=== PATIENT | male | born 1960 | race Caucasian/White ===

== ENCOUNTER 2019-09-16 12:06 | Emergency (ER) | payer OTHER ==
[~2019-09-16] VITALS: Ht 182.9 cm; Wt 111.4 kg
[2019-09-16 12:14] VITALS: BP 187/97
--- NOTE | 2019-09-16 13:14 | NUR ---
flu and posey swab done.
== END 2019-09-16 13:35 | disposition home or self-care (01) ==
LOC: ER 12:06
DX: J06.9 Acute upper respiratory infection, unspecified (principal); I10 Essential (primary) hypertension; Z72.89 Other problems related to lifestyle
CPT/HCPCS: 36415; 87502; 87503; 99283

== ENCOUNTER 2019-09-18 09:31 | Emergency (ER) | payer OTHER ==
--- NOTE | 2019-09-18 09:43 | NUR ---
PT WAS REGISTERED BY ER ADMITTING. PT ONLY WANTED HIS TEMPERATURE CHECKED FOR THE TABARES VIRUS. PT'S TEMP WAS 98.5 TEMPORALLY, PT DID NOT WANT TO BE SEEN AND LEFT WITHOUT A TRIAGE. 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
== END 2019-09-18 09:51 | disposition left against medical advice (07) ==
LOC: ER 09:31
DX: Z01.89 Encounter for other specified special examinations (principal); Z53.21 Procedure and treatment not carried out due to patient leaving prior to being seen by health care provider

== ENCOUNTER 2024-09-22 18:35 | Emergency (ER) | payer MEDICAID ==
[~2024-09-22] VITALS: Ht 182.9 cm; Wt 109.1 kg
[2024-09-22 18:57] VITALS: TEMP 98.2
[2024-09-22 20:27] LABS: BASOPHILS % (AUTO) 0.3 % (0-1); EOSINOPHILS # (AUTO) 0.2 X10'3 (0-0.9); EOSINOPHILS % (AUTO) 2.7 % (0-6); HEMATOCRIT 43.9 % (42.0-52.0); HEMOGLOBIN 14.9 g/dl (14.0-17.9); LYMPHOCYTES % (AUTO) 26.6 % (21-51); MEAN CORPUSCULAR HEMOGLOBIN 32.1 PG (27.0-31.0); MEAN CORPUSCULAR VOLUME 94.4 FL (78-98); MEAN PLATELET VOLUME 9.2 FL (7.4-10.4); MONOCYTES # (AUTO) 0.9 X10'3 (0-0.9); MONOCYTES % (AUTO) 11.9 % (2-12); NEUTROPHILS # (AUTO) 4.4 X10'3 (1.8-7.7); NEUTROPHILS % (AUTO) 58.5 % (42-75); PLATELET COUNT 142 X10'3 (140-440); RED BLOOD COUNT 4.64 X10'6 (4.70-6.10); WHITE BLOOD COUNT 7.6 X10'3 (4.5-11.0)
[2024-09-22] MEDS: HYDROmorphone 1 mg/ml syringe IV ONE (20:35)
[2024-09-22 20:42] LABS: APTT 25 SECONDS (22-32); PROTHROMBIN TIME 10.6 SECONDS (9.0-12.0)
[2024-09-22 20:44] LABS: ALANINE AMINOTRANSFERASE 33 U/L (12-78); ALKALINE PHOSPHATASE 46 IU/L (46-116); ANION GAP 9 (8-16); ASPARTATE AMINO TRANSFERASE 19 U/L (10-37); BILIRUBIN,TOTAL 0.5 MG/DL (0.1-1.0); BLOOD UREA NITROGEN 15 MG/DL (7-18); BUN/CREATININE RATIO 17.9 (10.0-20.0); CALCIUM 8.9 MG/DL (8.5-10.1); CHLORIDE 106 MMOL/L (99-107); CREATININE 0.84 MG/DL (0.60-1.10); GLUCOSE 131 MG/DL (70-104); POTASSIUM 3.9 MMOL/L (3.5-5.1); SODIUM 141 MMOL/L (135-145); TOTAL CARBON DIOXIDE 25.7 MMOL/L (24-32); TOTAL PROTEIN 7.9 G/DL (6.4-8.2); eCRCL 101 ML/MIN; eGFR > 90 ML/MIN
[2024-09-22 20:53] LABS: BILIRUBIN,DIRECT 0.1 MG/DL (0-0.3); MAGNESIUM 2.1 MG/DL (1.5-2.4); PRO BRAIN NATRIURETIC PEPTIDE 120 PG/ML (0-125)
[2024-09-22] MEDS: triamcinolone acetonide 40mg/ml inj IM ONE (22:18)
[2024-09-22] MEDS ORDERED: HYDROmorphone 1 mg/ml syringe IM ONE (22:40)
[2024-09-22] MEDS ORDERED: TRAM50TA2 PO (22:43)
[2024-09-22] MEDS: HYDROmorphone 1 mg/ml syringe IV STA (22:57)
[2024-09-22] MEDS: diazepam 5mg tablet PO ONE (22:57)
[2024-09-22 23:20] VITALS: BP 191/101; PULSE 68; RESP 19; O2SAT 97
== END 2024-09-22 23:23 | disposition home or self-care (01) ==
LOC: ER 18:37
DX: M51.369 Other intervertebral disc degeneration, lumbar region without mention of lumbar back pain or lower extremity pain (principal); M54.41 Lumbago with sciatica, right side; I11.0 Hypertensive heart disease with heart failure; I50.9 Heart failure, unspecified; E78.00 Pure hypercholesterolemia, unspecified; E11.9 Type 2 diabetes mellitus without complications; G89.29 Other chronic pain; M54.9 Dorsalgia, unspecified; Z72.89 Other problems related to lifestyle
CPT/HCPCS: 36415; 72131; 80048; 80076; 83735; 83880; 84484; 85025; 85610; 85730; 93005; 96372; 96374; 96376; 99285; J1171; J3301